=== PATIENT | female | born 1985 | race Caucasian/White ===

== ENCOUNTER 2018-03-28 16:08 | Emergency (ER) | payer OTHER ==
[2018-03-28 17:29] VITALS: BP 102/73
[2018-03-28 18:46] LABS: HCG Qualitative,Urine Positive (Negative)
[2018-03-28 18:51] LABS: Bacteria,Urine 2+ /HPF (Negative); Bilirubin,Urine NEG (Negative); Blood,Urine LG (Negative); Color,Urine Yellow (Yellow); Sperm,Urine 1+ /HPF (NP); Urobilinogen,Urine < 2.0 mg/dL (<2.0)
[2018-03-28 18:58] LABS: WBC,Urine > 182.0 /HPF (0.0-6.0)
[2018-03-28 19:15] LABS: Basophils % (Auto) 0.2 % (0.0-1.8); Eosinophils # (Auto) 0.1 K/mm3 (0.0-0.4); Eosinophils % (Auto) 0.6 % (0.0-4.3); Hematocrit 40.4 % (30.3-42.9); Hemoglobin 13.2 gm/dl (10.1-14.3); Lymphocytes # (Auto) 2.3 K/mm3 (1.2-5.4); Lymphocytes % (Auto) 23.6 % (13.4-35.0); Mean Corpuscular HGB Conc 33 % (30-34); Mean Corpuscular Hemoglobin 29 pg (28-32); Mean Corpuscular Volume 88 fl (79-97); Monocytes # (Auto) 0.6 K/mm3 (0.0-0.8); Monocytes % (Auto) 6.6 % (0.0-7.3); Platelet Count 220 K/mm3 (140-440); Red Blood Count 4.61 M/mm3 (3.65-5.03); Red Cell Distribution Width 13.5 % (13.2-15.2)
[2018-03-28 19:18] LABS: BUN/Creatinine Ratio 20; Blood Urea Nitrogen 10 mg/dL (7-17); Calcium 9.5 mg/dL (8.4-10.2); Hemolysis Index 0
--- NOTE | 2018-03-29 01:02 | Ultrasound Report ---
FINAL REPORT PROCEDURE: US OB < = 14 WEEKS FETUS TECHNIQUE: Real-time transabdominal sonography of the uterus, placenta, amniotic fluid, adnexa, and fetus was performed with image documentation. Measurements were obtained to determine age/size. M-mode Doppler was used to document heartbeat. CPT 01692 HISTORY: preg vag bleeding COMPARISON: No prior studies are available for comparison. FINDINGS: CRL: 62.5 mm, which corresponds to a gestational age of: 12 weeks, 5 days. Yolk Sac: Normal. Embryonic Cardiac Activity: 177 beats per minute Gestational Sac: Normal. Amniotic fluid: Normal. Cervix: Normal. Right Ovary: Normal. Left Ovary: Removed Estimated delivery date: October 04, 2018 Uterus and adnexa: Normal. IMPRESSION: Single live intrauterine gestation at approximately 12 weeks 6 days. EDC by 10/04/2018
--- NOTE | 2018-03-29 01:24 | Emergency Department Report ---
ED HPI - General Chief complaint: Vaginal Bleeding Stated complaint: 12 WEEKS PREG/PAIN/BLEEDING Time Seen by Provider: 03/28/18 22:41 Source: patient Mode of arrival: Ambulatory Limitations: No Limitations - History of Present Illness Initial comments: 32-year-old female presents to the emergency room for complaint of vaginal bleeding since 11 AM. Patient states she is approximately 11 weeks and has soaked 3 pads so far with clots. Patient reports that her pain is a 4 out of 10 she does have some vaginal itchiness no vaginal discharge positive chills no fever or positive nausea no vomiting. 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 Patient is 5 para 2 abortions 2 doses resulted in miscarriages patient reports that she is in care at [facility] in [place]. She reports that she has a history of a clamps via with her previous and pneumonia. She complains of pain in her lower back and lower pelvic. Patient reports her last menstrual period was 01/02/2018. MD Complaint: abdominal pain, vaginal bleeding -: hour(s) (12) Radiation: suprapubic Severity: moderate Severity scale (0 -10): 4 Quality: aching, sharp Consistency: constant Improves with: none Worsens with: none Associated symptoms: vaginal bleeding, abdominal pain. denies: vaginal discharge, dysuria Vaginal bleeding: heavy, clots :: Yes Number of weeks : 11 OB History - Current : no complications OB History - Previous Pregnancies: eclampsia, other Last menstrual period: 01/02/18 Pre-josé care: followed by OB - Related Data : 5 Para: 2 Ab: 2 Allergies Allergy/AdvReac Type Severity Reaction Status Date / Time No Known Allergies Allergy Unverified 03/28/18 16:28 ED Review of Systems ROS: Stated complaint: 12 WEEKS PREG/PAIN/BLEEDING Other details as noted in HPI Constitutional: chills. denies: fever Eyes: denies: eye pain, eye discharge, vision change ENT: denies: ear pain, throat pain Respiratory: denies: cough, shortness of breath, wheezing Cardiovascular: denies: chest pain, palpitations Gastrointestinal: abdominal pain, nausea. denies: vomiting Genitourinary: other (vaginal bleeding). denies: dysuria Musculoskeletal: back pain Skin: denies: rash, lesions Neurological: denies: headache, weakness, paresthesias Psychiatric: denies: anxiety, depression ED Past Medical Hx - Past Medical History Previous Medical History?: No - Surgical History Past Surgical History?: Yes Additional Surgical History: Left ovary and falkopian tube removed. - Social History Smoking Status: Unknown if ever smoked ED Physical Exam - General Limitations: No Limitations General appearance: alert, in no apparent distress - Eye Eye exam: Present: PERRL - ENT ENT exam: Present: normal exam, mucous membranes moist - Neck Neck exam: Present: full ROM - Respiratory Respiratory exam: Present: normal lung sounds bilaterally. Absent: respiratory distress - Cardiovascular Cardiovascular Exam: Present: regular rate, normal rhythm. Absent: systolic murmur, diastolic murmur, rubs, gallop - GI/Abdominal GI/Abdominal exam: Present: soft. Absent: distended, tenderness, guarding - Speculum exam: Present: vaginal bleeding Bi-manual exam: Present: adnexal tenderness (bilateral) - Extremities Exam Extremities exam: Present: normal inspection, full ROM. Absent: tenderness - Back Exam Back exam: Present: full ROM - Neurological Exam Neurological exam: Present: alert, oriented X3, normal gait - Psychiatric Psychiatric exam: Present: normal affect, normal mood - Skin Skin exam: Present: warm, dry, intact, normal color. Absent: rash ED Course Vital Signs 03/28/18 03/28/18 16:20 17:28 Temperature 98.4 F 98.5 F Pulse Rate 95 H 90 Respiratory 16 18 Rate Blood Pressure 114/80 Blood Pressure 102/73 [Left] O2 Sat by Pulse 98 100 Oximetry ED Medical Decision Making - Lab Data Result diagrams: 03/28/18 18:32 03/28/18 18:32 - Radiology Data Radiology results: report reviewed Ultrasound OB with transvaginal findings CRL: 62.5 mm, which corresponds to a gestational age of : 12 weeks, 5 days. Impression: Single live intrauterine gestation at approximately 12 weeks 6 days. EDC by ultrasound 10/04/2018 - Medical Decision Making Patient has been evaluated by this provider fast track. CBC CMP and urinalysis ultrasound OB was ordered Urinalysis shows patient has a urinary tract infection with greater than 182 WBCs. Ultrasound shows patient has a single live intrauterine gestation at approximately 20 weeks 6 days estimated date of conception by ultrasound 2018. Discussed the patient we will treat her for a urinary tract infection. Discussed with patient that is very important for contact her [employer] provider tomorrow. Patient is followed by [facility] in [place] Critical care attestation.: If time is entered above; I have spent that time in minutes in the direct care of this critically ill patient, excluding procedure time. ED Disposition Clinical Impression: Vaginal bleeding in patient at less than 20 weeks gestation Disposition: TO HOME OR SELFCARE Is pt being admited?: No Does the pt Need Aspirin: No Condition: Stable Additional Instructions: Please follow up with your OB doctor in the next 2 days. To be reevaluated and examined. You can only have Tylenol for pain. Please continue to be on bed rest until followed by OB provider. Referrals: PRIMARY CARE, [Primary Care Provider] - 3-5 Days Forms: Accompanied Note, Work/School Release Form(ED)
== END 2018-03-29 01:35 | disposition home or self-care (01) ==
LOC: ED 16:08
DX: O20.9 Hemorrhage in early pregnancy, unspecified (principal); Z3A.11 11 weeks gestation of pregnancy
CPT/HCPCS: 36415; 76801; 80048; 81001; 81025; 84702; 85025